=== PATIENT | female | born 1935 | race Caucasian/White ===

== ENCOUNTER 2020-10-29 21:23 | Emergency (ER) | payer MEDICARE, OTHER ==
[~2020-10-29 21:23] MED LIST: PREDNISONE 50 M50 MG PO
[2020-10-29 22:45] LABS: HEMOGLOBIN 14.5 gm/dl (12.3-15.3); RED BLOOD COUNT 4.64 M/UL (4.00-5.10); WHITE BLOOD COUNT 6.9 K/UL (4.5-11.0)
[2020-10-29 23:05] LABS: BUN/CREATININE RATIO 17 (0-10)
[2020-10-29] MEDS ORDERED: LISINOPRIL10 MG PO (23:34)
== END 2020-10-30 01:49 | disposition home or self-care (01) ==
LOC: ER1 21:23
PROVIDERS: Family Medicine
DX: G45.9 Transient cerebral ischemic attack, unspecified (principal); I10 Essential (primary) hypertension
CPT/HCPCS: 70450; 70496; 70498; 80053; 82550; 82553; 83874; 84439; 84443; 84484; 85025; 85610; 93005; 96374; 99285; J0360; Q9967

== ENCOUNTER 2020-10-30 03:12 | Emergency (ER) | payer MEDICARE, OTHER ==
[~2020-10-30 03:12] MED LIST changes: +LISINOPRIL10 MG PO
== END 2020-10-30 09:20 | disposition short-term general hospital (02) ==
LOC: ER1 03:12
DX: I63.9 Cerebral infarction, unspecified (principal); R53.1 Weakness; I10 Essential (primary) hypertension; F17.200 Nicotine dependence, unspecified, uncomplicated; R29.704 NIHSS score 4
CPT/HCPCS: 0240U; 70450; 81001; 82550; 82553; 83874; 84484; 93005; 99285; J0360

== ENCOUNTER 2021-01-25 00:30 | Emergency (ER) | payer MEDICARE, SELFPAY ==
[2021-01-25 03:42] LABS: HEMOGLOBIN 13.5 gm/dl (12.3-15.3); RED BLOOD COUNT 4.35 M/UL (4.00-5.10); WHITE BLOOD COUNT 9.4 K/UL (4.5-11.0)
[2021-01-25 04:02] LABS: BUN/CREATININE RATIO 26 (0-10)
== END 2021-01-25 04:17 | disposition home or self-care (01) ==
LOC: ER1 00:30
PROVIDERS: Physician Assistant
DX: S32.049A Unspecified fracture of fourth lumbar vertebra, initial encounter for closed fracture (principal); I69.951 Hemiplegia and hemiparesis following unspecified cerebrovascular disease affecting right dominant side; E78.5 Hyperlipidemia, unspecified; I10 Essential (primary) hypertension; W19.XXXA Unspecified fall, initial encounter
CPT/HCPCS: 72131; 73502; 73564; 73590; 80053; 81001; 82550; 82553; 83874; 84484; 85025; 87086; 99284